=== PATIENT | male | born 1990 | race Caucasian/White ===

== ENCOUNTER 2018-01-06 19:28 | Inpatient (IN) | payer OTHER ==
[~2018-01-06] VITALS: Ht 185.4 cm; Wt 64.6 kg
[2018-01-06] MEDS ORDERED: IOHEXOL 350 MG/ML 10 ML VIAL (for RAD DIAG) IVCONTRAST ONE (19:29)
[2018-01-06] MEDS ORDERED: ceFAZolin 2 GM PREMIX 50 ML ONE (19:31)
[2018-01-06] MEDS ORDERED: DIPHTH/TETANUS/ACEL PERTUSSIS (BOOSTER) 0.5 ML VIAL/PFS IM ONE (19:32)
[2018-01-06 19:34] VITALS: O2SAT 97
[2018-01-06] MEDS ORDERED: MORPHINE SULFATE 4 MG/ML INJ ONE (19:42)
[2018-01-06] MEDS ORDERED: ONDANSETRON HCL 4 MG/2 ML VIAL ONE (19:42)
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
[2018-01-06] MEDS ORDERED: DEXTROSE 50% IN WATER 50 ML SYRINGE ONE (19:49)
[2018-01-06 19:59] LABS: PROTHROMBIN TIME - PATIENT 9.7 SEC (9.8-11.6)
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
[2018-01-06 20:08] LABS: AUTOMATED NEUTROPHIL # 5.6 TH/MM3 (1.8-7.7); BASOPHIL % 0.3 % (0.0-2.0); EOSINOPHIL # 0.2 TH/MM3 (0-0.4); EOSINOPHIL % 1.5 % (0.0-4.0); HEMATOCRIT 42.6 % (39.0-51.0); HEMOGLOBIN 14.6 GM/DL (13.0-17.0); LYMPH % 36.3 % (9.0-44.0); LYMPHOCYTE # 3.8 TH/MM3 (1.0-4.8); MEAN CORPUSCULAR HEMOGLOBIN 30.9 PG (27.0-34.0); MEAN CORPUSCULAR HGB CONC 34.4 % (32.0-36.0); MEAN PLATELET VOLUME 7.5 FL (7.0-11.0); MONO % 8.5 % (0.0-8.0); MONOCYTE # 0.9 TH/MM3 (0-0.9); NEUT % 53.4 % (16.0-70.0); PLATELET COUNT 203 TH/MM3 (150-450); RED BLOOD COUNT 4.74 MIL/MM3 (4.50-5.90); RED CELL DISTRIBUTION WIDTH 15.3 % (11.6-17.2); WHITE BLOOD COUNT 10.6 TH/MM3 (4.0-11.0)
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
[2018-01-06] MEDS ORDERED: SODIUM CHLOR 0.9% 1000 ML INJ 1,000 ML IV SCH (21:11)
[2018-01-06] MEDS ORDERED: HYDROmorphone HCL PF 1 MG/ML VIAL IV PUSH PRN (21:15)
[2018-01-06] MEDS ORDERED: BISACODYL 10 MG SUPP RECTAL PRN (21:15)
[2018-01-06] MEDS ORDERED: SENNOSIDES 8.6 MG TAB PO PRN (21:15)
[2018-01-06] MEDS ORDERED: LACTULOSE SYRUP 20 GM/30 ML CUP PO PRN (21:15)
[2018-01-06] MEDS ORDERED: CHLORHEXIDINE GLUCONATE 2 % 1 PACK (2 CLOTHS) TOP PRN (21:15)
[2018-01-06] MEDS ORDERED: MISCELLANEOUS NURSING INFORMATION XX SCH (21:15)
[2018-01-06] MEDS ORDERED: ONDANSETRON HCL 4 MG/2 ML VIAL IV PUSH PRN (21:15)
[2018-01-06] MEDS ORDERED: MAGNESIUM HYDROXIDE SUSP 30 ML CUP PO PRN (21:15)
[2018-01-06 22:00] VITALS: BP 125/66; PULSE 68; PULSE 82; RESP 19; TEMP 98.8; O2SAT 100
[2018-01-06] MEDS: HYDROmorphone HCL PF 2 MG/ML VIAL IV PUSH PRN (22:03)
[2018-01-06] MEDS: ACETAMINOPHEN 1000 MG/100 ML 100 ML IV SCH (22:04)
[2018-01-06 23:00] VITALS: BP 127/73; PULSE 82; RESP 13; TEMP 98.8; O2SAT 100
[2018-01-07] VITALS (18 sets, daily range): BP systolic 116–146; BP diastolic 58–84; PULSE 47–85; RESP 11–22; TEMP 98.2–98.8; O2SAT 96–100
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
[2018-01-07] MEDS ORDERED: SUBO2MIS SL (00:58)
[2018-01-07] MEDS ORDERED: SUBO8MIS SL (01:07)
[2018-01-07] MEDS: ACETAMINOPHEN 1000 MG/100 ML 100 ML IV SCH ×3 (03:58→15:58)
[2018-01-07] MEDS: CHLORHEXIDINE GLUCONATE 2 % 1 PACK (2 CLOTHS) TOP SCH (04:00)
[2018-01-07 05:34] LABS: AUTOMATED NEUTROPHIL # 3.4 TH/MM3 (1.8-7.7); BASOPHIL % 0.3 % (0.0-2.0); EOSINOPHIL # 0.1 TH/MM3 (0-0.4); EOSINOPHIL % 1.2 % (0.0-4.0); HEMOGLOBIN 13.8 GM/DL (13.0-17.0); LYMPH % 32.7 % (9.0-44.0); LYMPHOCYTE # 2.1 TH/MM3 (1.0-4.8); MEAN CELL VOLUME 89.4 FL (80.0-100.0); MEAN CORPUSCULAR HEMOGLOBIN 30.8 PG (27.0-34.0); MEAN CORPUSCULAR HGB CONC 34.4 % (32.0-36.0); MEAN PLATELET VOLUME 7.8 FL (7.0-11.0); MONO % 13.2 % (0.0-8.0); MONOCYTE # 0.8 TH/MM3 (0-0.9); NEUT % 52.6 % (16.0-70.0); PLATELET COUNT 175 TH/MM3 (150-450); RED BLOOD COUNT 4.47 MIL/MM3 (4.50-5.90); RED CELL DISTRIBUTION WIDTH 15.4 % (11.6-17.2); WHITE BLOOD COUNT 6.4 TH/MM3 (4.0-11.0)
--- NOTE | 2018-01-07 05:34 | RADRPT ---
EXAM DATE/TIME: 01/07/2018 04:19 [facility] COMPARISON: CHEST SINGLE AP, January 06, 2018, 19:29. INDICATIONS : Respiratory distress. MEDICAL HISTORY : None. SURGICAL HISTORY : None. ENCOUNTER: Subsequent ACUITY: 2 days PAIN SCORE: Non-responsive. LOCATION: Bilateral chest FINDINGS: A single view of the chest demonstrates the lungs to be symmetrically aerated without evidence of mas s, infiltrate or effusion. The cardiomediastinal contours are unremarkable. Osseous structures are intact. CONCLUSION: No acute disease. Derek Mata MD on January 07, 2018 at 5:32 Board Certified Radiologist. This report was verified electronically.
[2018-01-07 06:02] LABS: BICARBONATE 25.7 MEQ/L (21.0-32.0); CALCIUM 8.1 MG/DL (8.5-10.1); CREATININE 0.7 MG/DL (0.60-1.30)
[2018-01-07] MEDS: LIDOCAINE HCL 5% PATCH T-DERMAL SCH (09:06)
[2018-01-07] MEDS: DOCUSATE SODIUM 50 MG/SENNA 8.6 MG TAB PO SCH ×2 (09:06→21:42)
[2018-01-07] MEDS: FAMOTIDINE 20 MG/2 ML VIAL IV PUSH SCH ×2 (09:06→21:42)
[2018-01-07] MEDS: METHOCARBAMOL 500 MG TAB PO SCH ×3 (09:41→22:18)
[2018-01-07] MEDS: HYDROmorphone HCL PF 2 MG/ML VIAL IV PUSH PRN ×3 (09:42→21:41)
[2018-01-07] MEDS: GABAPENTIN 300 MG CAP PO SCH ×2 (13:23→17:45)
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
[2018-01-07] MEDS ORDERED: NALOXONE SL SCH (16:00)
[2018-01-07] MEDS ORDERED: BUPRENORPHINE SL SCH (16:00)
[2018-01-07] MEDS ORDERED: HYDROmorphone HCL PF 2 MG/ML VIAL IV PUSH PRN (16:15)
[2018-01-07 17:23] LABS: AUTOMATED NEUTROPHIL # 3.6 TH/MM3 (1.8-7.7); BASOPHIL % 0.4 % (0.0-2.0); EOSINOPHIL # 0.1 TH/MM3 (0-0.4); EOSINOPHIL % 1.4 % (0.0-4.0); HEMATOCRIT 41.3 % (39.0-51.0); LYMPH % 28.8 % (9.0-44.0); LYMPHOCYTE # 1.8 TH/MM3 (1.0-4.8); MEAN CELL VOLUME 90.7 FL (80.0-100.0); MEAN CORPUSCULAR HEMOGLOBIN 30.8 PG (27.0-34.0); MONO % 11.1 % (0.0-8.0); MONOCYTE # 0.7 TH/MM3 (0-0.9); NEUT % 58.3 % (16.0-70.0); PLATELET COUNT 162 TH/MM3 (150-450); RED BLOOD COUNT 4.55 MIL/MM3 (4.50-5.90); RED CELL DISTRIBUTION WIDTH 15.5 % (11.6-17.2); WHITE BLOOD COUNT 6.2 TH/MM3 (4.0-11.0)
[2018-01-07] MEDS ORDERED: BUPRENORPHINE/NALOXONE 8 MG/2 MG SUBLINGUAL TAB SL SCH (21:00)
[2018-01-08] VITALS (10 sets, daily range): BP systolic 112–125; BP diastolic 67–79; PULSE 56–74; RESP 13–27; TEMP 98.6–99.6; O2SAT 92–100
[2018-01-08] MEDS: HYDROmorphone HCL PF 2 MG/ML VIAL IV PUSH PRN ×5 (01:30→17:24)
[2018-01-08] MEDS: CHLORHEXIDINE GLUCONATE 2 % 1 PACK (2 CLOTHS) TOP SCH (04:00)
[2018-01-08 05:35] LABS: AUTOMATED NEUTROPHIL # 4.2 TH/MM3 (1.8-7.7); BASOPHIL % 0.2 % (0.0-2.0); EOSINOPHIL # 0.1 TH/MM3 (0-0.4); EOSINOPHIL % 1.5 % (0.0-4.0); HEMATOCRIT 38.1 % (39.0-51.0); LYMPH % 30.1 % (9.0-44.0); LYMPHOCYTE # 2.3 TH/MM3 (1.0-4.8); MEAN CELL VOLUME 90.3 FL (80.0-100.0); MEAN CORPUSCULAR HEMOGLOBIN 30.8 PG (27.0-34.0); MEAN CORPUSCULAR HGB CONC 34.1 % (32.0-36.0); MEAN PLATELET VOLUME 8.3 FL (7.0-11.0); MONO % 13.6 % (0.0-8.0); MONOCYTE # 1.1 TH/MM3 (0-0.9); NEUT % 54.6 % (16.0-70.0); PLATELET COUNT 147 TH/MM3 (150-450); RED BLOOD COUNT 4.21 MIL/MM3 (4.50-5.90); RED CELL DISTRIBUTION WIDTH 15.3 % (11.6-17.2); WHITE BLOOD COUNT 7.8 TH/MM3 (4.0-11.0)
[2018-01-08 05:49] LABS: ALBUMIN 3.2 GM/DL (3.4-5.0); ALT (GPT) 56 U/L (12-78); AST (GOT) 46 U/L (15-37); BICARBONATE 27.7 MEQ/L (21.0-32.0); BLOOD UREA NITROGEN 7 MG/DL (7-18); CALCIUM 8.5 MG/DL (8.5-10.1); CHLORIDE 104 MEQ/L (98-107); CREATININE 0.62 MG/DL (0.60-1.30); GLOMERULAR FILTRATION RATE 112 ML/MIN (>89); GLUCOSE,RANDOM 89 MG/DL (74-106); SODIUM (NA) 140 MEQ/L (136-145)
[2018-01-08 05:52] LABS: ALKALINE PHOSPHATASE 69 U/L (45-117); TOTAL BILIRUBIN ADULT 0.5 MG/DL (0.2-1.0); TOTAL PROTEIN 6.7 GM/DL (6.4-8.2)
[2018-01-08] MEDS: METHOCARBAMOL 500 MG TAB PO SCH ×3 (06:27→21:49)
--- NOTE | 2018-01-08 07:04 | RADRPT ---
EXAM DATE/TIME: 01/08/2018 05:02 [facility] COMPARISON: CHEST SINGLE AP, January 07, 2018, 4:19. INDICATIONS : Shortness of breath. MEDICAL HISTORY : None. SURGICAL HISTORY : None. ENCOUNTER: Subsequent ACUITY: 3 days PAIN SCORE: Non-responsive. LOCATION: Bilateral chest FINDINGS: 2 AP semierect views of the chest were obtained and demonstrate mild patchy opacity at the left lung base with partial obscuration left hemidiaphragm on one view. The right lung is clear. The heart size is within normal limits. The costophrenic angle appears mildly blunted. They're overlying electrocar diogram leads. The bony thorax is intact. CONCLUSION: Abnormal opacity at the left lung base of concern for pneumonia. Derek Mata MD on January 08, 2018 at 7:01 Board Certified Radiologist. This report was verified electronically.
[2018-01-08] MEDS: DOCUSATE SODIUM 50 MG/SENNA 8.6 MG TAB PO SCH ×2 (08:01→21:49)
[2018-01-08] MEDS: FAMOTIDINE 20 MG/2 ML VIAL IV PUSH SCH (08:01)
[2018-01-08] MEDS: GABAPENTIN 300 MG CAP PO SCH ×3 (08:01→17:22)
[2018-01-08] MEDS: LIDOCAINE HCL 5% PATCH T-DERMAL SCH (08:01)
[2018-01-08] MEDS ORDERED: oxyCODONE/ACETAMINOPHEN 5 MG/325 MG TAB PO PRN (09:30)
[2018-01-08] MEDS: oxyCODONE/ACETAMINOPHEN 10 MG/325 MG TAB PO PRN ×3 (11:51→21:49)
[2018-01-08] MEDS: ENOXAPARIN SODIUM 40 MG/0.4 ML SYRINGE SQ SCH (11:51)
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
[2018-01-08] MEDS ORDERED: ACETAMINOPHEN 1000 MG/100 ML 100 ML IV PRN (20:45)
[2018-01-08] MEDS: MAGNESIUM HYDROXIDE SUSP 30 ML CUP PO SCH (21:49)
[2018-01-09 00:34] VITALS: BP 128/76; PULSE 68; RESP 20; TEMP 98.7; O2SAT 100
[2018-01-09] MEDS: CHLORHEXIDINE GLUCONATE 2 % 1 PACK (2 CLOTHS) TOP SCH (04:00)
[2018-01-09 04:37] VITALS: BP 119/64; PULSE 62; RESP 20; TEMP 98; O2SAT 98
[2018-01-09] MEDS: METHOCARBAMOL 500 MG TAB PO SCH ×2 (05:31→13:02)
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
[2018-01-09 06:51] LABS: AUTOMATED NEUTROPHIL # 4.3 TH/MM3 (1.8-7.7); BASOPHIL % 0.2 % (0.0-2.0); EOSINOPHIL # 0.2 TH/MM3 (0-0.4); EOSINOPHIL % 2.2 % (0.0-4.0); HEMATOCRIT 39.4 % (39.0-51.0); HEMOGLOBIN 13.5 GM/DL (13.0-17.0); LYMPH % 28.3 % (9.0-44.0); LYMPHOCYTE # 2.3 TH/MM3 (1.0-4.8); MEAN CORPUSCULAR HEMOGLOBIN 30.5 PG (27.0-34.0); MEAN CORPUSCULAR HGB CONC 34.3 % (32.0-36.0); MEAN PLATELET VOLUME 7.8 FL (7.0-11.0); MONO % 15.8 % (0.0-8.0); MONOCYTE # 1.3 TH/MM3 (0-0.9); NEUT % 53.5 % (16.0-70.0); PLATELET COUNT 164 TH/MM3 (150-450); RED BLOOD COUNT 4.42 MIL/MM3 (4.50-5.90); WHITE BLOOD COUNT 8.1 TH/MM3 (4.0-11.0)
[2018-01-09 06:58] LABS: ALBUMIN 3.1 GM/DL (3.4-5.0); AST (GOT) 30 U/L (15-37); BICARBONATE 29.1 MEQ/L (21.0-32.0); BLOOD UREA NITROGEN 9 MG/DL (7-18); CALCIUM 8.9 MG/DL (8.5-10.1); CHLORIDE 105 MEQ/L (98-107); GLOMERULAR FILTRATION RATE 159 ML/MIN (>89); GLUCOSE,RANDOM 92 MG/DL (74-106); SODIUM (NA) 138 MEQ/L (136-145)
[2018-01-09 07:03] LABS: ALKALINE PHOSPHATASE 71 U/L (45-117); ALT (GPT) 44 U/L (12-78); TOTAL BILIRUBIN ADULT 0.5 MG/DL (0.2-1.0)
[2018-01-09 08:00] VITALS: BP 117/70; PULSE 56; RESP 16; TEMP 98.3; O2SAT 100
[2018-01-09] MEDS: GABAPENTIN 300 MG CAP PO SCH ×2 (09:16→13:02)
[2018-01-09] MEDS: DOCUSATE SODIUM 50 MG/SENNA 8.6 MG TAB PO SCH (09:16)
[2018-01-09] MEDS: MAGNESIUM HYDROXIDE SUSP 30 ML CUP PO SCH (09:17)
[2018-01-09] MEDS: oxyCODONE/ACETAMINOPHEN 10 MG/325 MG TAB PO PRN ×2 (09:17→13:02)
[2018-01-09] MEDS: LIDOCAINE HCL 5% PATCH T-DERMAL SCH (09:18)
[2018-01-09] MEDS ORDERED: NEUR300C PO (09:46)
[2018-01-09] MEDS ORDERED: METH500T3 PO (09:46)
[2018-01-09 12:00] VITALS: BP 128/69; PULSE 79; RESP 19; TEMP 97.7; O2SAT 91
[2018-01-09] MEDS: ENOXAPARIN SODIUM 40 MG/0.4 ML SYRINGE SQ SCH (12:00)
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
== END 2018-01-09 15:21 | disposition home or self-care (01) | DRG 964 ==
LOC: NEPI 19:28 → NEDA 20:52 → EDBD 20:52 → N03A 21:29 → N03B 01-08 13:40
PROVIDERS: ADMIT Surgery Trauma Surgery; ATTEND Surgery Trauma Surgery
DX: S36.021A Major contusion of spleen, initial encounter (principal); S27.1XXA Traumatic hemothorax, initial encounter; S22.42XA Multiple fractures of ribs, left side, initial encounter for closed fracture; S27.321A Contusion of lung, unilateral, initial encounter; F11.10 Opioid abuse, uncomplicated; S50.312A Abrasion of left elbow, initial encounter; V28.4XXA Motorcycle driver injured in noncollision transport accident in traffic accident, initial encounter; Y92.410 Unspecified street and highway as the place of occurrence of the external cause; Z72.0 Tobacco use
CPT/HCPCS: 70450; 71045; 71260; 72125; 72170; 74177; 80048; 80053; 80307; 85025; 85384; 85610; 85730; 86850; 86900; 86901; 86920; 87641; 90471; 90715; 94150; 94667; 94668; 96374; 96375; J0131; J0690; J1170; J1650; J2270; J2405; Q9967